=== PATIENT | male | born 1945 | race Caucasian/White ===

== ENCOUNTER 2020-04-29 06:46 | Inpatient (IN) ==
--- NOTE | 2020-04-03 14:15 | PAT Medication Instructions ---
Medication Instructions Date of Service April 03, 2020 Home Medications Medication Instructions Recorded 3-in-1 Commode #1 ea 02/24/20 Wheeled Walker #1 ea 02/24/20 acetaminophen 650 mg tablet,extended release 1,300 mg PO Q8H PRN cholecalciferol (vitamin D3) 50 mcg (2,000 unit) tablet 50 mcg PO DAILY duloxetine 60 mg capsule,delayed release 60 mg PO QAM DO NOT take the morning of surgery cholecalciferol (vitamin D3) 50 mcg (2,000 unit) tablet 50 mcg PO DAILY Take morning of surgery With a small sip of water, OTHERWISE NOTHING TO EAT OR DRINK AFTER MIDNIGHT: acetaminophen 650 mg tablet,extended release 1,300 mg PO Q8H PRN (if needed, may be taken up to four hours before surgery) duloxetine 60 mg capsule,delayed release 60 mg PO QAM Other Notes If you have any questions please call us at [phone] or [phone] or [phone] or [phone]
--- NOTE | 2020-04-06 11:46 | Anesthesiology Consultation ---
Date of Service April 06, 2020 Assessment & Plan (1) Encounter for pre-operative examination: COVID Status: As of 04/06 PAT assessment, patient denies travel to endemic area, known exposure/sick contacts, or symptoms of COVID19. Preoperative COVID19 testing to be completed prior to surgery. Chart Review Chart Review: Acceptable Risk for Surgery and Patient seen in Pre Admission Testing Teaching & Discussion Instructed NPO after midnight before surgery, except medications with 15 cc of water. Medication instructions provided according to the [facility] guidelines. History Surgery Operation Date: 04/29/20 11:15 Proposed Procedures p Left Total Hip Arthroplasty - Jamari Suazo MD Height/Weight Height: 6 ft Weight: 95.2 kg Allergies Allergy/AdvReac Type Severity Reaction Status Date / Time No Known Allergies Allergy Verified 03/30/20 12:28 Medications Home Medications Medication Instructions Recorded Confirmed Last Taken 3-in-1 Commode #1 ea 02/24/20 02/24/20 Unknown Wheeled Walker #1 ea 02/24/20 02/24/20 Unknown acetaminophen 650 mg 1,300 mg PO Q8H PRN 02/24/20 03/30/20 Unknown tablet,extended release cholecalciferol (vitamin D3) 50 50 mcg PO DAILY 02/24/20 03/30/20 Unknown mcg (2,000 unit) tablet duloxetine 60 mg capsule,delayed 60 mg PO QAM 02/24/20 03/30/20 Unknown release Past Medical History Medical History Bilateral hip joint arthritis Hearing deficit Rt GUADARRAMA History of hypertension History of syncope x 1 episode approx 2 years ago r/t hypotension - bp meds discontinued after episode. Osteoarthritis Exercise / Class Metabolic Activity II 4-5 Yardwork/Stairs/Walk up hill (denies SOB or CP with 1 FOS) Past Family History Family History Brother Diabetes Other No family history of adverse response to anesthesia Past Surgical History Surgical History History of ankle surgery Left History of colonoscopy History of plastic surgery Rt ear History of tonsillectomy and adenoidectomy Status post excision of lipoma Status post surgical removal of neoplasm of skin Rt ear Past Anesthesia History No Hx of Anesthesia Complications and No Family Hx of Anesthesia Complications History of PONV No Hx of Motion Sickness and History of PONV (just with ether as a child) Social History Smoking Status: Former smoker Do You Dip or Chew Tobacco: No (quit 1999) Smoking End Date: 1984 Hx Alcohol Use: Yes Alcohol type: hard liquor alcohol intake frequency: 0-2 drinks per day (1/day) Hx Substance Use: No substance use type: does not use Review of Systems Pt denies any recent chest pain, shortness of breath, palpitations, cough, fever or URI. Physical Exam Vital Signs BP: 171/105, rpt 5 mins later 160/98. He is anxious today. Pt reports takes BP daily at home and usually 130s/80s. As noted in hx, pt previously on antihypertensives but were d/c'd due to syncope/hypotension. PCP monitoring. P: 75bpm SPO2: 97% RA T: 98.5 F R: 16 ENMT Mouth: + dentures (upper) and + poor dentition (missing several on bottom, 9 remain); no chipped teeth and no loose teeth Thyromental Distance: > or= 3.5 Finger Breadths (4) Mallampati Class: II Neck normal visual inspection and + limited neck extension Respiratory normal respiratory effort Auscultation: lungs clear to auscultation bilaterally Cardiovascular Rate/Rhythm: regular rate and regular rhythm Heart Sounds: no murmur Extremities: no edema Testing Laboratory Results 04/06/20 12:01 04/06/20 12:01 PT 10.5 Seconds (9.0-12.0) 04/06/20 12:01 INR 1.0 (0.9-1.1) 04/06/20 12:01 APTT 29.3 Seconds (21.0-31.0) 04/06/20 12:01 Blood Type O Positive 04/06/20 12:01 Antibody Screen NEGATIVE 04/06/20 12:01 Electrocardiogram Date: 04/06/20 Findings: + NSR @ (75bpm) Chest X-Ray Date: 04/06/20 Findings: + NAD Echocardiogram Date: 06/15/18 EF: 60% Other Findings: + LVH (mild concentric) Valvular Disease: + no significant valvular disease Normal RV size and function. Normal RV/PA pressures.
--- NOTE | 2020-04-06 12:37 | XRay Report ---
XR chest Pre-admission PA/Lat HISTORY: 74 years-old Male pat preoperative exam. No acute chest complaints COMPARISON: None TECHNIQUE: PA and lateral views of the chest FINDINGS: Cardiac mediastinal and hilar silhouettes are within normal limits. No pneumothorax, pleural effusion , airspace consolidation or overt pulmonary edema. Bones of the chest appear grossly intact. IMPRESSION: No acute process. ACT 112: Negative or not required by law. The above report was generated using voice recognition software. It may contain grammatical, syntax o r spelling errors. Electronically signed by: Jacky Curtis M.D. 04/06/2020 12:35 PM
--- NOTE | 2020-04-06 12:38 | Electrocardiogram Report ---
Test Reason : Blood Pressure : / mmHG Vent. Rate : 075 BPM Atrial Rate : 075 BPM P-R Int : 168 ms QRS Dur : 094 ms QT Int : 422 ms P-R-T Axes : 020 044 047 degrees QTc Int : 471 ms Normal sinus rhythm Normal ECG No previous ECGs available Confirmed by Magan Cm ([id number]) on 04/06/2020 12:38:04 PM Referred By: Jamari Suazo Confirmed By:Franklin Cm
[2020-04-06 13:23] LABS: Basophils # (auto) 0.03 K/uL (0-0.2); Basophils % (auto) 0.5 %; Eosinophils # (auto) 0.15 K/uL (0-0.5); Eosinophils % (auto) 2.3 %; Hematocrit (blood only) 40.9 % (42-52); Hemoglobin 13.4 g/dL (14.0-18.0); Lymphocytes % (auto) 28.9 %; Mean Corpuscular Hemoglobin 28.5 pg (25-34); Mean Corpuscular Hgb Conc 32.8 g/dL (32-36); Mean Platelet Volume 9.4 fL (7.4-10.4); Monocytes # (auto) 0.53 K/uL (0.11-0.59); Monocytes % (auto) 8.1 %; Neutrophils # (auto) 3.96 K/uL (1.4-6.5); Neutrophils % (auto) 60.2 %; Platelet Count 249 K/uL (130-400); RDW Coefficient of Variation 14.8 % (11.5-14.5); RDW Standard Deviation 47.3 fL (36.4-46.3); White Blood Count 6.57 K/uL (4.8-10.8)
[2020-04-06 13:31] LABS: BUN Creatinine Ratio 18.2 (10-20); Calcium 9.2 mg/dl (8.5-10.1); Creatinine Clr Calc Pharmacy 81.4 ml/min; Est GFR (African American) 98.5; Potassium 4.2 mmol/L (3.5-5.1)
[2020-04-06 13:36] LABS: Partial Thromboplastin Ratio 1.1; Partial Thromboplastin Time 29.3 Seconds (21.0-31.0); Prothrombin Time 10.5 Seconds (9.0-12.0)
--- NOTE | 2020-04-25 22:45 | History and Physical Report ---
DATE OF ADMISSION: 04/24/2020 CHIEF COMPLAINT: Bilateral hip pain and discomfort, left side greater than the right. HISTORY OF PRESENT ILLNESS: The patient is a 74-year-old semi-retired gentleman. He has got about 2-1/2 year history of bilateral hip pain and discomfort, left side greater than right. No known injury. He has become more debilitating over time. He has tried multiple medicines which have not helped. He took Aleve which increased his blood pressure. He takes Tylenol which does not help much. He did try some CBD medicine which has helped some. He is an avid fisherman. He cannot fish as a result of his pain. Usually, fishes 2 hours at a time, but cannot do it for more than a half hour now. His walking tolerance is a couple blocks. He has increased pain with weightbearing. He has difficulty putting his shoes and socks on. He would like to proceed with hip surgery. PAST MEDICAL HISTORY: 1. Hypertension. 2. Elevated cholesterol. CURRENT MEDICINES: Include: 1. Tylenol. 2. Vitamin D3. 3. Duloxetine 60 mg daily. 4. CBD 15 mg a day. SOCIAL HISTORY: A 74-year-old male. He is . His is an RN. He does not smoke. FAMILY HISTORY: Significant for diabetes. REVIEW OF HISTORY: Negative for diabetes, neurologic problem, vascular problems or bleeding disorders. No chest pain or shortness of breath. No history of DVT or PE. No known bleeding problems. PHYSICAL EXAMINATION: GENERAL: Reveals a healthy, pleasant, middle-aged male. Looks to be in excellent health. HEENT: Benign. NECK: Supple, no lymphadenopathy. LUNGS: Clear to auscultation. HEART: Has a regular rate and rhythm. ABDOMEN: Soft, nontender, nondistended. EXTREMITIES: Grossly neurovascularly intact except as follows: Examination of his lower extremities reveals the patient ambulates with a significantly antalgic gait. Examination of left hip reveals his leg lengths to be equal. He does have stiffness and reproduction of his pain with any type of motion, particularly internal rotation. I can internally rotate his left hip to neutral. Negative straight leg raise. No knee effusion. He is neurologically intact. Examination of the right hip reveals leg lengths to be equal. Mild pain with hip motion. Very stiff as well with limited internal rotation. X-RAYS: X-rays of both hips reveals moderate to advanced hip arthritis, left side greater than the right. He has got near complete loss of joint space. He has got cystic changes of the femoral head and acetabulum. ASSESSMENT: A 74-year-old very active, semi-retired gentleman and avid fisherman with bilateral hip pain and degenerative joint disease, left side worse than right. He has failed conservative treatment and is affecting his quality of life and he would like to have his left hip fixed. PLAN: We will take him to the operating room and do a left total hip replacement. The risks and benefits of this procedure were explained to the patient including but not limited to DVT, PE, , infection, neurological injury, vascular injury, bleeding problem, pain, limited range of motion, stiffness, failure to relieve symptoms, incomplete relief of symptoms, need for further surgery in future, fracture, leg length inequality, nerve palsy, etc. The patient understands and desires to proceed. Informed consent was obtained. As far as discharge plans, he is planning to be discharged home with some home health and his 's assistance who is an RN. JESS
[~2020-04-29 06:46] MED LIST: ACETAMINOPHEN 500 MG TAB PO SCH; BUPIVACAINE 0.5 % 5 MG/1 ML PF 10ML VIAL ONE; CEFAZOLIN 2000MG 2,000 MG/15 ML SYR IV SCH; FAMOTIDINE 20 MG TAB PO SCH; GABAPENTIN 300 MG CAP PO SCH; LR 500ML BOLUS, THEN 15ML/HR IV SCH; LR 60ML/HR IV SCH; METOCLOPRAMIDE HCL 10 MG TABLET PO SCH; TRANEXAMIC ACID 1,000 MG **IV Pre-op IV SCH
--- NOTE | 2020-04-29 06:53 | History & Physical Bridge Note ---
Date of Service April 29, 2020 History & Physical Bridge Note I have examined the patient, reviewed the History & Physical and in the interval since the performance of the History & Physical I have noted the following changes of clinical significance: no changes noted
[2020-04-29] MEDS ORDERED: MIDAZOLAM HCL 1 MG/ML 2ML VIAL ONE (07:45)
[2020-04-29] MEDS ORDERED: fentaNYL citrate 100 MCG/2 ML VIAL ONE (07:45)
[2020-04-29] MEDS ORDERED: PROPOFOL IV EMULSION 10 MG/ML 20 ML VIAL IV ONE ×2 (08:46→11:11)
[2020-04-29] MEDS ORDERED: ONDANSETRON INJ 2 MG/ML 2 ML VIAL ONE (08:46)
[2020-04-29] MEDS ORDERED: DEXAMETHASONE SOD INJ 4 MG/ML VIAL ONE (08:46)
[2020-04-29] MEDS ORDERED: MoRPHine SULFATE PF 1 MG/ML 10 ML AMP/VIAL ONE (09:24)
[2020-04-29] MEDS ORDERED: LACTATED RINGER'S 500 ML IV PRN (09:42)
[2020-04-29] MEDS ORDERED: HYDROmorphone INJ 0.5 MG/0.5 ML SYR IV PRN ×2 (09:42→13:22)
[2020-04-29] MEDS ORDERED: EPINEPHrine INJ 1 MG/ML AMP ONE (09:42)
[2020-04-29] MEDS ORDERED: ONDANSETRON INJ 2 MG/ML 2 ML VIAL IV PRN ×2 (09:42→13:22)
[2020-04-29] MEDS ORDERED: MoRPHine SULFATE PF 1 MG/ML 10 ML AMP/VIAL INT SPINAL ONE (09:42)
[2020-04-29] MEDS ORDERED: NALOXONE HCL 0.08 MG in SYRINGE 1.8 ML IV PRN (09:42)
[2020-04-29] MEDS ORDERED: ePHEDrine sulfate 50 MG/ML AMP IV PRN ×2 (09:42→09:43)
[2020-04-29] MEDS ORDERED: BACITRACIN INJ 50,000 UNIT VIAL ONE (09:42)
[2020-04-29] MEDS ORDERED: DiphenhydrAMINE HCL 50 MG/ML VIAL IV PRN (09:42)
[2020-04-29] MEDS ORDERED: NALOXONE HCL 1 MG in SODIUM CHLORIDE 0.9% 1000ML 1,000 ML IV PRN (09:42)
[2020-04-29] MEDS ORDERED: BUPIVACAINE 0.5 % 5 MG/1 ML MPF 30ML VIAL ONE (09:42)
[2020-04-29] MEDS ORDERED: NALOXONE HCL 0.4 MG/1 ML VIAL/CARP IV PRN ×2 (09:42→13:22)
[2020-04-29] MEDS ORDERED: ATROPINE SULFATE 0.1 MG/ML 10ML SYR IV PRN (09:43)
[2020-04-29] MEDS ORDERED: SODIUM CHLORIDE 0.9% 1000ML 1,000 ML IV SCH (09:45)
[2020-04-29] MEDS ORDERED: NO NARCOTICS OR SEDATIVES SCH (09:45)
[2020-04-29] MEDS ORDERED: ePHEDrine sulfate 50 MG/ML SYR ONE ×2 (10:17→10:44)
[2020-04-29] MEDS ORDERED: GLYCOPYRROLATE 0.2 MG/ML VIAL ONE (10:43)
[2020-04-29] MEDS ORDERED: PHENYLEPHRINE HCL 10 MG/ML VIAL ONE (10:44)
--- NOTE | 2020-04-29 11:30 | Post Operative Brief Note ---
PG Immediate Post Op with CF Date of Surgery April 29, 2020 Pre & Post Diagnosis Operation Date: 04/29/20 09:05 Pre-Op Diagnosis: Left Hip Degenerative Joint Disease Post-Op Diagnosis: Left Hip Degenerative Joint Disease I identified the patient and participated in the time-out.: Yes Procedure Operation Date: 04/29/20 09:05 Actual Procedures p Left Total Hip Arthroplasty, uncemented(Left) - Jamari Suazo MD Surgeon Jamari Suazo MD Molder Setter Carmen, PAC Estimated Blood Loss 200 Findings Consistent with Post-Op Diagnosis Fluids 400 cc Specimens Specimen Description: Permanent specimen A: left femoral head Anesthesia Type Spinal MAC Complications none Disposition Accompanied Patient To Recovery: Yes Disposition: Recovery Room
--- NOTE | 2020-04-29 12:10 | XRay Report ---
XR hip 1V LT w pelvis CLINICAL HISTORY: IN PACU - A/P PELVIS and LATERAL HIP COMPARISON: None. DISCUSSION: Anatomic alignment post total left hip arthroplasty. Could contact between prosthetic and underlying bone. No evidence for acetabular protrusion. Expected postoperative soft tissue change IMPRESSION: Anatomic alignment post total left hip arthroplasty ACT 112: Negative or not required by law. The above report was generated using voice recognition software. It may contain grammatical, syntax or spelling errors. Electronically signed by: Mickey Escudero M.D. 04/29/2020 12:09 PM
--- NOTE | 2020-04-29 12:37 | Anesthesiology Progress Note ---
Date of Service April 29, 2020 Anesthesia Post Procedure Vital Signs Vital Signs: Temp Pulse Pulse Resp BP Pulse Ox 04/29/20 12:20 36.4 C L 88 20 141/87 H 98 04/29/20 12:10 77 13 142/83 H 93 04/29/20 12:00 81 14 138/85 95 04/29/20 11:50 36.5 C 88 12 140/79 96 04/29/20 11:40 93 H 14 136/80 100 04/29/20 11:33 36.4 C L 98 H 16 129/78 100 04/29/20 08:17 73 18 191/94 H 99 04/29/20 08:12 72 18 180/101 H 98 04/29/20 07:26 36.8 C 77 18 180/105 H 97 Transfer of Care Handoff Completed per policy Notes Mental Status: alert / awake / arousable and participated in evaluation Nausea / Vomiting: adequately controlled Pain: adequately controlled Airway Patency, RR, SpO2: stable & adequate BP & HR: stable & adequate Hydration State: stable & adequate Neuraxial Anesthesia: was administered and sensory block is resolving Anesthetic Complications: no major complications apparent and Pt Satisfied with anesthetic care
[2020-04-29] MEDS ORDERED: bisacodyL 10 MG SUPP PR PRN (13:22)
[2020-04-29] MEDS ORDERED: MAGNESIUM HYDROXIDE SUSP 30 ML UDC PO PRN (13:22)
[2020-04-29] MEDS ORDERED: TAMSULOSIN HCL 0.4 MG CAP PO PRN (13:22)
[2020-04-29] MEDS ORDERED: METOCLOPRAMIDE HCL INJ 5 MG/ML 2 ML VIAL IV PRN (13:22)
[2020-04-29] MEDS ORDERED: ALUMINUM/MAGNESIUM SUSP 30 ML UDC PO PRN (13:22)
[2020-04-29] MEDS ORDERED: TRAMADOL HCL 50 MG TABLET PO PRN (13:22)
--- NOTE | 2020-04-29 13:54 | Urology Progress Note ---
Date of Service April 29, 2020 Subjective Patient post hip replacement surgery today. We were asked to place a Gallagher as the could not do it in the operating room. Coud Gallagher was placed without difficulty Results & Data Vital Signs (Past 12 Hours) Vital Signs Temp Pulse Pulse Pulse Resp BP Pulse Ox 04/29/20 13:39 71 16 153/83 H 94 04/29/20 13:22 36.6 C 70 16 153/94 H 94 04/29/20 12:30 68 16 129/79 97 04/29/20 12:20 36.4 C L 88 20 141/87 H 98 04/29/20 12:10 77 13 142/83 H 93 04/29/20 12:00 81 14 138/85 95 04/29/20 11:50 36.5 C 88 12 140/79 96 04/29/20 11:40 93 H 14 136/80 100 04/29/20 11:33 36.4 C L 98 H 16 129/78 100 04/29/20 08:17 73 18 191/94 H 99 04/29/20 08:12 72 18 180/101 H 98 04/29/20 07:26 36.8 C 77 18 180/105 H 97 PG Care Time/CCT Total # of Minutes Spent Total Time Spent with Patient: Total time spent is greater than 50% in coordination of care (as documented) at patient's floor/unit and/or counseling patient: Coding Level of Care Code None
[2020-04-29] MEDS: ACETAMINOPHEN 500 MG TAB PO SCH ×2 (14:30→21:37)
[2020-04-29] MEDS: KETOROLAC TROMETHAMINE 15 MG/ML VIAL IV SCH ×2 (14:30→21:34)
[2020-04-29] MEDS: SODIUM CHLORIDE 0.9% 1000ML 1,000 ML IV SCH ×2 (14:30→21:44)
[2020-04-29] MEDS: FERROUS GLUCONATE 324 MG TAB PO SCH (17:20)
[2020-04-29] MEDS: ASCORBIC ACID 500 MG TAB PO SCH (17:21)
[2020-04-29] MEDS: CEFAZOLIN 2000MG 2,000 MG/15 ML SYR IV SCH (17:25)
[2020-04-29] MEDS ORDERED: TRANEXAMIC ACID / 0.7% NACL 1,000 MG/100 ML BAG IV SCH (17:30)
--- NOTE | 2020-04-29 19:34 | Operative Report ---
Post Operative Report Pre & Post Diagnosis Operation Date: 04/29/20 09:05 Pre-Op Diagnosis: Left Hip Degenerative Joint Disease Post-Op Diagnosis: Left Hip Degenerative Joint Disease I identified the patient and participated in the time-out.: Yes Procedure Operation Date: 04/29/20 09:05 Actual Procedures p Left Total Hip Arthroplasty, uncemented(Left) - Jamari Suazo MD Surgeon Jamari Suazo MD Dishwasher Carmen, PAC Estimated Blood Loss 200 Findings Consistent with Post-Op Diagnosis Operative findings operative findings revealed advanced left hip DJD. He had grade 4 [id number] disease of the femoral head and acetabulum. He had a fairly large medial acetabular osteophyte. Moderate sized joint effusion. Fluids 400 cc. Specimens Left femoral head sent for pathology. Drains None. Anesthesia Type Spinal MAC Complications none Disposition Accompanied Patient To Recovery: Yes Disposition: Recovery Room Indications Patient is a 74-year-old fairly active gentleman is had a several year history of increasing left hip pain discomfort is gotten suddenly worse over the past year. He has been unable to enjoy fishing like he normally does because he just cannot stand or walk for any long distance. X-rays show progressive hip arthritis. He failed conservative treatment. Elective proceed with total hip arthroplasty. Description of Procedure Operative implants consist of: 1. Biomet G7 size 54 mm acetabular shell. 2. 6.5 cancellus acetabular screws 135 mm in length and 1 of the 25 mm in length. 3 [place] hole eliminator. 4. Highly cross-linked polyethylene liner with a 54 mm outer diameter, 36 mm inner diameter with a hartman placed inferior and posterior. 5. [place] Corail size 13 KLA femoral stem. 6. +5/36 mm ceramic articular ball. Patient taken to the operating room identified and placed on the operating table supine position protectors were properly padded. IV antibiotics arrived by anesthesia team. A spinal anesthetic been implemented holding area. Gallagher catheter was attempted to be placed in a sterile fashion. We unable to place this. We tried a size 12 catheter and then a coud catheter were unsuccessful. We elected to abort this admission and get a urology consult in the recovery penny . The patient was then placed in the right lateral decubitus position. Axillary roll was placed. Stulberg hip positioner was used for positioning. The left hip and leg were then prepped and draped in usual sterile fashion. A posterior lateral posterior left hip was then performed through a curvilinear incision centered over the greater trochanter but sharp dissection got through subcutaneous tissue down to level the IT band gluteal fascia the IT band gluteal fascia incised longitudinally in line with skin incision. The underlying greater bursa was excised. The piriformis and external rotators were tagged and taken off the posterior aspect hip joint capsule. The posterior capsule was released. Great care was taken throughout the procedure protect the sciatic nerve at all times. Hip was internally rotated and dislocated. Femoral neck osteotomy cut was made with Final Cut 12 mm above the lesser trochanter. Femoral head was removed. It was sent for pathology. The femur was retracted anteriorly. The acetabular labrum was excised. The pulmonary fat was excised. Sequential reaming the acetabular was then performed begin with size 45 and progressing up to 53. 54 mm Biomet G7 acetabular shell was then placed in about 40 degrees lateral opening and 20 degrees of anteversion. It was fixed with two 6.5 cancellus acetabular screws. A trial liner was placed. Attention drawn the femur. Nipride the proximal femur was entered with a cookie-cutter followed by canal finder. I then broached beginning with a size 8 and progressing up to 13. Got excellent fit at 13. Calcar reamer was used smooth and off the calcar. I then trialed the hip and the +5 articular ball seem to re-create leg lengths equal and soft tissue tension appropriate. It was fully stable in full e xtension and external rotation and flexion to 9 degrees into rotation over [address] I elect to place these implants. I did place a hartman inferior and posterior to maximize the stability in flexion. All trial implants were removed. An apex hole limited was placed but highly cross-linked polyethylene liner was placed. A size 13 KLA femoral stem was impacted in position. A +5/36 mm ceramic articular ball was placed. Hip was located once again found to be stable. Attention drawn to closing. New breath wounds irrigated copious pulsatile lavage solution. I did inject locally with 60 cc of half percent Marcaine with epinephrine. The posterior capsule and external rotators were then repaired through drill holes in the posterior trochanter with #2 Tycron suture. The IT band gluteal fascia then closed with #1 PDS suture running fashion the subcutaneous tissues then closed 2 layers the deep layer #1 Vicryl suture and then the subcutaneous tissues with 2-0 Dexon suture in a buried interrupted fashion the skin was closed skin dayna. Legs then cleaned dried and sterile dressed composed Xeroform 4 x 4's sterile cast padding Rigo bandage were applied. Patient then transferred to the recovery room in stable condition. Patient tolerated procedure well no complications. I attest to the content of the Intraoperative Record and any orders documented therein. Any exceptions are noted below.
[2020-04-29] MEDS ORDERED: SENNA 8.6 MG TAB PO SCH (21:00)
[2020-04-29] MEDS: DOCUSATE SODIUM 100 MG CAP PO SCH (21:35)
[2020-04-29] MEDS: ASPIRIN 81 MG ECTAB PO SCH (21:36)
[2020-04-30] MEDS: KETOROLAC TROMETHAMINE 15 MG/ML VIAL IV SCH ×3 (02:04→13:26)
[2020-04-30] MEDS: CEFAZOLIN 2000MG 2,000 MG/15 ML SYR IV SCH (02:06)
[2020-04-30] MEDS ORDERED: DC INTRASPINAL MORPHINE ONE (03:42)
[2020-04-30] MEDS: ACETAMINOPHEN 500 MG TAB PO SCH ×2 (05:51→13:24)
[2020-04-30] MEDS: SODIUM CHLORIDE 0.9% 1000ML 1,000 ML IV SCH (05:54)
[2020-04-30 06:35] LABS: Basophils # (auto) 0.01 K/uL (0-0.2); Basophils % (auto) 0.1 %; Hematocrit (blood only) 35.6 % (42-52); Hemoglobin 11.1 g/dL (14.0-18.0); Immature Granulocytes # (auto) 0.04 K/uL (0.00-0.02); Immature Granulocytes % (auto) 0.3 %; Lymphocytes # (auto) 1.25 K/uL (1.2-3.4); Lymphocytes % (auto) 10.5 %; Mean Corpuscular Hgb Conc 31.2 g/dL (32-36); Mean Corpuscular Volume 89.7 fL (80-100); Mean Platelet Volume 9.3 fL (7.4-10.4); Monocytes % (auto) 5.9 %; Neutrophils # (auto) 9.92 K/uL (1.4-6.5); Neutrophils % (auto) 83.2 %; Platelet Count 197 K/uL (130-400); RDW Coefficient of Variation 15.4 % (11.5-14.5); RDW Standard Deviation 50.9 fL (36.4-46.3); Red Blood Count 3.97 M/uL (4.7-6.1); White Blood Count 11.92 K/uL (4.8-10.8)
[2020-04-30] MEDS ORDERED: SODIUM CHLORIDE 0.9% 1000ML 500 ML IV ONE (06:37)
[2020-04-30 07:08] LABS: Calcium 7.9 mg/dl (8.5-10.1); Creatinine Clr Calc Pharmacy 39.9 ml/min; Est GFR (African American) 37.1; Potassium 4.3 mmol/L (3.5-5.1)
--- NOTE | 2020-04-30 07:35 | Anesthesiology Progress Note ---
Date of Service April 30, 2020 Anesthesia Post Procedure Vital Signs Vital Signs: Temp Pulse Pulse Pulse Resp BP BP 04/30/20 07:28 36.7 C 75 18 126/70 04/30/20 02:57 16 04/30/20 02:55 36.6 C 78 16 95/57 L 04/30/20 02:10 16 04/30/20 01:00 16 04/30/20 00:00 16 04/29/20 23:32 36.6 C 83 16 104/65 04/29/20 22:05 18 04/29/20 21:14 18 04/29/20 20:07 36.5 C 75 18 142/81 H 04/29/20 19:20 16 04/29/20 19:17 15 04/29/20 18:03 16 04/29/20 17:02 18 04/29/20 15:57 36.6 C 75 16 115/70 04/29/20 15:11 36.5 C 71 16 135/79 04/29/20 14:00 65 16 142/83 H 04/29/20 13:39 71 16 153/83 H 04/29/20 13:22 36.6 C 70 16 153/94 H 04/29/20 12:30 68 16 129/79 04/29/20 12:20 36.4 C L 88 20 141/87 H 04/29/20 12:10 77 13 142/83 H 04/29/20 12:00 81 14 138/85 04/29/20 11:50 36.5 C 88 12 140/79 04/29/20 11:40 93 H 14 136/80 04/29/20 11:33 36.4 C L 98 H 16 129/78 04/29/20 08:17 73 18 191/94 H 04/29/20 08:12 72 18 180/101 H Pulse Ox 04/30/20 07:28 92 04/30/20 02:57 96 04/30/20 02:55 97 04/30/20 02:10 95 04/30/20 01:00 94 04/30/20 00:00 94 04/29/20 23:32 95 04/29/20 22:05 93 04/29/20 21:14 95 04/29/20 20:07 96 04/29/20 19:20 95 04/29/20 19:17 91 04/29/20 18:03 91 04/29/20 17:02 93 04/29/20 15:57 92 04/29/20 15:11 95 04/29/20 14:00 97 04/29/20 13:39 94 04/29/20 13:22 94 04/29/20 12:30 97 04/29/20 12:20 98 04/29/20 12:10 93 04/29/20 12:00 95 04/29/20 11:50 96 04/29/20 11:40 100 04/29/20 11:33 100 04/29/20 08:17 99 04/29/20 08:12 98 Pain Intensity Left Hip: Pain Intensity: 0 Transfer of Care Handoff Completed per policy Notes Mental Status: alert / awake / arousable Nausea / Vomiting: adequately controlled Pain: adequately controlled Airway Patency, RR, SpO2: stable & adequate BP & HR: stable & adequate Hydration State: stable & adequate Neuraxial Anesthesia: was administered and sensory block resolved Anesthetic Complications: no major complications apparent and Pt Satisfied with anesthetic care
--- NOTE | 2020-04-30 08:29 | Progress Notes ---
DATE: 04/30/2020 SUBJECTIVE: A 74-year-old gentleman postop day 1 from a left hip replacement. He is doing pretty well. Pain is controlled. Little hypotensive this morning but asymptomatic. No chest pain or shortness of breath. Not feeling dizzy or lightheaded. He is a bit concerned that this low blood pressure might hold his discharge up. OBJECTIVE: VITAL SIGNS: Temperature 36.6. Vital signs stable. Blood pressure 95/57. GENERAL: Reveals a pleasant, middle-aged male. He is sitting up in bed and looks comfortable. LUNGS: Clear to auscultation. HEART: Regular rate and rhythm. ABDOMEN: Soft, nontender, nondistended. EXTREMITIES: Grossly neurovascularly intact except as follows: Examination of the left lower extremity reveals the leg to be well aligned. Hip is located. Dressing is clean, dry, and intact. He is neurologically intact. LABORATORY DATA: Hemoglobin 11.1. Hematocrit 35.6. White cell count 11.92. Electrolytes are pending. ASSESSMENT: A 74-year-old gentleman postop day 1 from a left hip replacement, doing pretty well. He is a little hypotensive this morning but asymptomatic. He has been ordered some IV fluids. He still has a Gallagher in place. PLAN: 1. DVT prophylaxis including thigh-high TEDs, SCDs, and aspirin twice a day. 2. PT/OT. Weight bear as tolerated. Left total hip protocol. 3. Pain control, doing well with current pain regimen. 4. Hypotension. We will give him some fluid this morning and follow this throughout the day. 5. Disposition: He is hoping to be discharged home with some home health. We will see how therapy goes today. We will need to get his Gallagher out and make sure he is urinating okay.
[2020-04-30] MEDS: FERROUS GLUCONATE 324 MG TAB PO SCH (08:40)
[2020-04-30] MEDS: ASCORBIC ACID 500 MG TAB PO SCH (08:40)
[2020-04-30] MEDS: ASPIRIN 81 MG ECTAB PO SCH (08:41)
[2020-04-30] MEDS: DOCUSATE SODIUM 100 MG CAP PO SCH (08:41)
[2020-04-30] MEDS ORDERED: DULOXETINE HCL 60 MG CAP PO SCH (09:00)
[2020-04-30] MEDS ORDERED: MULTIVITAMIN TAB PO SCH (09:00)
[2020-04-30] MEDS ORDERED: CHOLECALCIFEROL 1,000 UNITS 25 MCG TAB PO SCH (09:00)
--- NOTE | 2020-04-30 11:20 | Urology Progress Note ---
Date of Service April 30, 2020 Assessment & Plan (1) BPH (benign prostatic hyperplasia): clark out this am call if further issues Subjective difficult clark yesterday - cath is out now has not voided yet denies voiding dysfunction at baseline Physical Exam Constitutional: well developed and well nourished Respiratory: no respiratory distress Cardiovascular: Extremities: no pedal edema Gastrointestinal (Abdomen): Inspection/Auscultation: abdomen normal to inspection Results & Data Vital Signs (Past 12 Hours) Vital Signs Temp Pulse Resp BP Pulse Ox 04/30/20 07:28 36.7 C 75 18 126/70 92 04/30/20 02:57 16 96 04/30/20 02:55 36.6 C 78 16 95/57 L 97 04/30/20 02:10 16 95 04/30/20 01:00 16 94 04/30/20 00:00 16 94 04/29/20 23:32 36.6 C 83 16 104/65 95 PG Care Time/CCT Total # of Minutes Spent Total Time Spent with Patient: Total time spent is greater than 50% in coordination of care (as documented) at patient's floor/unit and/or counseling patient: Coding Level of Care Code 16070 Subseq Hosp Care Lvl 2 Diagnoses BPH (benign prostatic hyperplasia) N40.0
--- NOTE | 2020-05-05 15:49 | Discharge Summary ---
Date of Service May 05, 2020 Admission HPI Per Admitting Provider Documented in the H&P Admission Exam (Per Admitting) Constitutional Documented in the H&P Discharge Data Consultations 04/29/20 13:22 Consult Urology Stat 04/30/20 08:00 Consult Case Management - Discharge Planning Routine Procedures Performed Operation Date: 04/29/20 09:05 Actual Procedures p Left Total Hip Arthroplasty, uncemented(Left) - Jamari Suazo MD Hospital Course (1) Status post total hip replacement, left: 74-year-old male admitted on 04/29/2020 and underwent total hip replacement. He tolerated the procedure well and there were no complications. He was transferred to the PACU postoperatively and later the orthopedic for further care. There was difficulty placing his Gallagher catheter in the operating room and urology was consulted. He was seen by Dr. Esparza in the PACU where the catheter was placed successfully. He was given Ancef for antibiotic prophylaxis. He was also given REBECA stockings, SCDs, and aspirin for DVT prophylaxis. His hemoglobin, hematocrit, and vital signs were monitored during his hospital stay and remained stable. He did not require blood transfusions. He did have some hypotension postoperatively but remained asymptomatic. There were no Complications during His Hospital Stay. Postoperative Day 1 he was tolerating a regular diet, pain was controlled with oral pain medicine, and he was participating in physical therapy. Postop day 1 he was discharged home set up with home health services. He was given printed discharge instructions as well as new prescriptions for extra strength Tylenol, aspirin, iron supplement, and tramadol. Continue physical therapy. He is weightbearing as tolerated. Total hip precautions. Continue REBECA stockings. Follow-up proximately 2 weeks postop or sooner if any problems or concerns. Coding Level of Care Code None Diagnoses Status post total hip replacement, left Z96.642
== END 2020-04-30 15:30 | disposition home health service (06) | DRG 470 ==
LOC: ASU 06:46 → 3E 11:34
DX: M16.12 Unilateral primary osteoarthritis, left hip; I95.9 Hypotension, unspecified; Z87.891 Personal history of nicotine dependence; N40.0 Benign prostatic hyperplasia without lower urinary tract symptoms

== ENCOUNTER 2020-09-11 10:41 | Observation (INO) ==
--- NOTE | 2020-08-20 09:28 | Anesthesiology Consultation ---
Date of Service August 20, 2020 Assessment & Plan (1) Encounter for pre-operative examination: Chart Review Chart Review: Acceptable Risk for Surgery (pending preop Covid testing ) and Patient NOT seen in Pre Admission Testing Per nursing assessment 08/12/20, pt resides in [facility]. Wears mask, uses good hand hygiene and socially distances. 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 No known Covid positive contacts or Covid related symptoms. Pt will follow up with surgeon for preop Covid testing. Left TKA 04/29/20= Done under SAB at L3 with 1 attempt. No anesthesia issues noted per anesthesia record. History Surgery Operation Date: 09/11/20 08:50 Proposed Procedures p Right Total Hip Arthroplasty - Jamari Suazo MD Height/Weight Height: 6 ft Weight: 90.718 kg Allergies Allergy/AdvReac Type Severity Reaction Status Date / Time tramadol AdvReac Severe AGGRESSIVE, Verified 08/12/20 14:41 CONFUSED, SWINGING AT PEOPLE Medications Home Medications Medication Instructions Recorded Confirmed Last Taken 3-in-1 Commode #1 ea 02/24/20 02/24/20 Unknown Wheeled Walker #1 ea 02/24/20 02/24/20 Unknown cholecalciferol (vitamin D3) 50 50 mcg PO QAM 02/24/20 08/19/20 04/28/20 07:30 mcg (2,000 unit) tablet Cbd Oit Otc 20 mg PO QAM 08/12/20 08/19/20 Unknown Past Medical History Medical History Bilateral hip joint arthritis Hearing deficit Rt GUADARRAMA History of hypertension History of syncope x 1 episode approx 2 years ago r/t hypotension - bp meds discontinued after episode. Osteoarthritis Past Family History Family History Brother Diabetes Other No family history of adverse response to anesthesia Past Surgical History Surgical History History of ankle surgery Left History of colonoscopy History of plastic surgery Rt ear History of tonsillectomy and adenoidectomy History of total hip arthroplasty LEFT 04/2020 Status post excision of lipoma Status post surgical removal of neoplasm of skin Rt ear Social History Smoking Status: Never smoker Do You Dip or Chew Tobacco: No (QUIT AGE 62) Smoking End Date: QUIT AGE 42 Hx Alcohol Use: Yes Alcohol type: hard liquor alcohol intake frequency: 0-2 drinks per day Hx Substance Use: No substance use type: other Substance Use Type Other:: CBD OIL PO 1 ML(20 MG)QAM Testing Laboratory Results Blood Type O Positive 08/19/20 12:40 Antibody Screen NEGATIVE 08/19/20 12:40 Laboratory Tests 08/19/20 08/19/20 08/19/20 12:40 12:40 12:40 WBC 5.87 Hgb 14.0 Hct 43.6 Plt Count 283 PT 10.4 INR 1.0 Sodium 141 Potassium 4.2 Chloride 109 H Carbon Dioxide 30 BUN 15 Creatinine 0.94 Glucose 96 Electrocardiogram Date: 04/06/20 Findings: + NSR @ (75) Normal EKG. Chest X-Ray Date: 04/06/20 Findings: + NAD Echocardiogram Date: 06/15/18 EF: 60% LV Function: normal Other Findings: + LVH (mild concentric) Valvular Disease: + no significant valvular disease Normal RV size and function. Normal RV/PA pressures. Stress Test Date: 08/04/14 Type: exercise (ECHO ) Resting EF: 60-65% Resting LV Function: normal Resting RWMA: + none Good exercise tolerance. Normal hemodynamic response to exercise. No EKG evidence of exercise induced ischemia. No ECHO evidence of exercise induced ischemia. Normal stress ECHO.
[~2020-09-11 10:41] MED LIST changes: -CEFAZOLIN 2000MG 2,000 MG/15 ML SYR IV SCH; +MIDAZOLAM HCL 1 MG/ML 2ML VIAL ONE; +TRANEXAMIC ACID 1,000 MG **IV Intra-op IV SCH; -TRANEXAMIC ACID 1,000 MG **IV Pre-op IV SCH; +ceFAZolin 2000MG 2,000 MG/15 ML SYR IV SCH; +fentaNYL citrate 100 MCG/2 ML VIAL ONE
[2020-09-11] MEDS ORDERED: MoRPHine SULFATE PF 1 MG/ML 10 ML AMP/VIAL ONE (13:00)
--- NOTE | 2020-09-11 13:34 | History & Physical Bridge Note ---
Date of Service September 11, 2020 History & Physical Bridge Note I have examined the patient, reviewed the History & Physical and in the interval since the performance of the History & Physical I have noted the following changes of clinical significance: no changes noted
[2020-09-11] MEDS ORDERED: BACITRACIN INJ 50,000 UNIT VIAL ONE (13:42)
[2020-09-11] MEDS ORDERED: PROPOFOL IV EMULSION 10 MG/ML 20 ML VIAL IV ONE (13:42)
[2020-09-11] MEDS ORDERED: LIDOCAINE HCL 2% 2 ML VIAL/AMP(20MG/ML) INFIL ONE (13:42)
[2020-09-11] MEDS ORDERED: BUPIVACAINE/EPINEPHRINE 0.5% MPF 1:200,000 30 ML VIAL ONE (13:42)
[2020-09-11] MEDS ORDERED: MIDAZOLAM HCL 1 MG/ML 2ML VIAL ONE (14:07)
[2020-09-11] MEDS ORDERED: ePHEDrine sulfate 50 MG/ML SYR ONE (14:31)
[2020-09-11] MEDS ORDERED: ONDANSETRON INJ 2 MG/ML 2 ML VIAL ONE (14:31)
[2020-09-11] MEDS ORDERED: NALOXONE HCL 0.4 MG/1 ML VIAL/CARP IV PRN ×2 (14:48→20:01)
[2020-09-11] MEDS ORDERED: ONDANSETRON INJ 2 MG/ML 2 ML VIAL IV PRN (14:48)
[2020-09-11] MEDS ORDERED: diphenhydrAMINE 50 MG/ML VIAL IV PRN (14:48)
[2020-09-11] MEDS ORDERED: NALOXONE HCL 0.08 MG in SYRINGE 1.8 ML IV PRN (14:48)
[2020-09-11] MEDS ORDERED: HYDROmorphone INJ 0.5 MG/0.5 ML SYR IV PRN (14:48)
[2020-09-11] MEDS ORDERED: ePHEDrine sulfate 50 MG/ML AMP IV PRN ×2 (14:48)
[2020-09-11] MEDS ORDERED: NALOXONE HCL 1 MG in SODIUM CHLORIDE 0.9% 1000ML 1,000 ML IV PRN (14:48)
[2020-09-11] MEDS ORDERED: MoRPHine SULFATE PF 1 MG/ML 10 ML AMP/VIAL INT SPINAL ONE (14:48)
[2020-09-11] MEDS ORDERED: ATROPINE SULFATE 0.1 MG/ML 10ML SYR IV PRN (14:48)
[2020-09-11] MEDS ORDERED: DC INTRASPINAL MORPHINE SCH (15:00)
--- NOTE | 2020-09-11 15:43 | Post Operative Brief Note ---
PG Immediate Post Op with CF Date of Surgery September 11, 2020 Pre & Post Diagnosis Operation Date: 09/11/20 12:30 Pre-Op Diagnosis: Right Hip Degenerative Joint Disease Post-Op Diagnosis: Right Hip Degenerative Joint Disease I identified the patient and participated in the time-out.: Yes Procedure Operation Date: 09/11/20 12:30 Actual Procedures p Right Total Hip Arthroplasty--Uncemented(Right) - Jamari Suazo MD Surgeon Jamari Suazo MD Dye Room Helper MILVIA Morales; Estimated Blood Loss 200 Findings Consistent with Post-Op Diagnosis Fluids 1500 cc Specimens Specimen Description: A. Right Femoral Head Anesthesia Type Spinal MAC Complications none Disposition Accompanied Patient To Recovery: Yes Disposition: Recovery Room
--- NOTE | 2020-09-11 16:24 | XRay Report ---
AP PELVIS, CROSSTABLE LATERAL RIGHT HIP History: Right total hip arthroplasty. Degenerative arthritis. Postop. FINDINGS: The patient is status post a right total hip arthroplasty. The hardware is intact. No fract ure or dislocation. Skin dayna are in place. Evidence for prior left total hip arthroplasty. IMPRESSION: Right total hip arthroplasty. No evidence for hardware complication ACT 112: Negative or not required by law. Electronically signed by: Jacek Lemus M.D. 09/11/2020 4:23 PM
[2020-09-11] MEDS ORDERED: LIDOCAINE 2% JELLY 5 ML TUBE ONE ×2 (16:31→16:40)
--- NOTE | 2020-09-11 16:31 | Anesthesiology Progress Note ---
Date of Service September 11, 2020 Anesthesia Post Procedure Vital Signs Vital Signs: Temp Pulse Pulse Resp BP BP Pulse Ox 09/11/20 16:25 68 8 L 135/69 96 09/11/20 16:15 72 16 139/69 95 09/11/20 16:05 71 16 163/85 H 97 09/11/20 15:55 68 18 143/80 H 97 09/11/20 15:45 36.5 C 82 16 123/81 99 09/11/20 12:10 66 18 181/111 H 98 09/11/20 11:18 36.6 C 80 18 174/106 H 90 Transfer of Care Handoff Completed per policy Notes Mental Status: alert / awake / arousable Patient Amnestic to Procedure: Yes Nausea / Vomiting: adequately controlled Pain: adequately controlled Airway Patency, RR, SpO2: stable & adequate BP & HR: stable & adequate Hydration State: stable & adequate Neuraxial Anesthesia: was administered and sensory block is resolving Anesthetic Complications: no major complications apparent
--- NOTE | 2020-09-11 17:44 | Operative Report ---
Post Operative Report Pre & Post Diagnosis Operation Date: 09/11/20 12:30 Pre-Op Diagnosis: Right Hip Degenerative Joint Disease Post-Op Diagnosis: Right Hip Degenerative Joint Disease Operation Date: 09/11/20 15:55 <No data on this case meets the specified criteria> I identified the patient and participated in the time-out.: Yes Procedure Operation Date: 09/11/20 12:30 Actual Procedures p Right Total Hip Arthroplasty--Uncemented(Right) - Jamari Suazo MD Operation Date: 09/11/20 15:55 <No data on this case meets the specified criteria> Surgeon Jamari Suazo MD Wave Guide Assembler MILVIA Morales; Estimated Blood Loss 200 Findings Consistent with Post-Op Diagnosis Much inOperative findings revealed advanced right hip DJD. He had grade 4 [id number] disease the femoral head and acetabulum. not much in way of osteophyte formation. He had a moderate-sized joint effusion. Fluids 1500 cc. Specimens Right femoral head sent for pathology. Drains None. Anesthesia Type Spinal MAC Complications none Disposition Accompanied Patient To Recovery: No Disposition: Recovery Room Indications Patient is a 75-year-old gentleman who has a several year history of increasing bilateral hip pain discomfort. Is been through extensive conservative treatment past which really have not helped much. He underwent a left total hip replacement about 4 and half months ago and is done well from this. He elected proceed with right total hip arthroplasty. Description of Procedure Operative implants consist of: 1. Biomet G7 size 54 mm acetabular shell. 2. 6.5 cancellous acetabular screws 1 of 35 mm in length and 1 of 25 mm length. 3. [place] hole gmat tutor. 4. Highly cross-linked polyethylene liner with a 54 mm outer diameter 36 mm inner diameter with a hartman placed inferior and posterior. 5. Ximena Corail size 13 KLA femoral stem. 6. +5/36 mm ceramic articular ball. The patient was taken to the operating identified and placed on the operating table supine position but all contractors were properly padded. IV antibiotics tried by anesthesia team. A spinal anesthetic and been implemented holding area. We attempted to place a Gallagher catheter but were unsuccessful. Therefore we elected to hold off on this and have urology do such in the recovery room. The patient was then placed in the left lateral decubitus position. An axillary roll was placed. Stulberg hip positioner was used for positioning. The right lower extremity and hip area were then prepped and draped in usual sterile fashion. A posterior lateral approach of the right hip was then performed through a curvilinear incision centered over the greater trochanter. Sharp dissection got through subcutaneous tissue down to level the IT band gluteal fascia but the IT band gluteal fascia incised longitudinally in line with skin incision. The underlying greater bursa was excised. The piriformis and external rotators were taken off the posterior aspect of the hip joint as a single layer. Great care was taken throughout the procedure protect the sciatic nerve at all times. The hip was internally rotated and dislocated. A femoral neck osteotomy cut was made with Final Cut 12 mm above the lesser trochanter. Femoral head was removed and sent for pathology. The femur was retracted anteriorly. Attention drawn the acetabulum. The acetabular labrum was excised. The pulmonary fat was excised. Sequential reaming the acetabular was then performed performed begin with a size 45 and progressing up to 53. I did reamed a little bit with a 54 reamer. A 54 mm Biomet G7 acetabular shell was then placed in about 40 degrees lateral opening and 20 degrees of anteversion. It was fixed with two 6.5 cancellus acetabular screws. Trial liner was placed. Attention drawn the femur. The proximal femur was entered with a cookie-cutter followed by canal finder. I then broached begin the size 8 and progressing up to 13. We got excellent fit at 13. I then trialed the hip. The the soft tissues tension seemed appropriate. The hip was fully stable in full extension and external rotation and flexion to 90 degrees and internal rotation of 45 to 50 degrees. I did elect to place a hartman inferior and posterior to maximize his stability in flexion. We elect to place these implants. All trial implants were removed. An apex hole gmat tutor was placed. Highly cross-linked polyethylene liner with a hartman placed inferior and posterior was impacted in position. A [place] size 13 KLA femoral stem was impacted in position. A +5/36 mm ceramic articular ball was placed and the hip was once again located. Attention drawn toward closing. Wounds irrigated cups amounts of pulsatile lavage solution. I injected locally with 60 cc of half percent Marcaine with epinephrine. The posterior capsule and external rotators were then repaired through drill in the posterior trochanter with #2 Tycron suture as a single layer. The IT band gluteal fascia then closed in 1 PDS suture running fashion the subcutaneous tissue then closed 2 layers the deep layer #1 Vicryl suture and subcutaneous tissues with 2-0 Dexon suture in a buried interrupted fashion. Skin was closed skin dayna. The leg was then davian aned and dried a sterile dressing composed Xeroform, 4 x 4's, ABD pad, foam tape were applied. Patient transported to the recovery room in stable condition. The patient tolerated procedure well and there were no complications. A consult was placed for urology to place a Gallagher catheter in the recovery room. Stan Morales, my physician purchasing administrative assistant, was present for the entire procedure. His assistance was essential and required for appropriate patient positioning, prepping and draping, surgical exposure, performing the technical details of the operation, placement the implants, closure of the wound, and placement of the sterile bandage. I attest to the content of the Intraoperative Record and any orders documented therein. Any exceptions are noted below.
--- NOTE | 2020-09-11 17:51 | Urology Consultation ---
Date of Consultation September 11, 2020 Assessment & Plan (1) BPH (benign prostatic hyperplasia): (2) Urethral stricture: Cystoscopy Procedure performed by: Jerry Carcamo II Consent: Verbal, urgent due to inability to void with hematuria Indications: Inability to pass catheter, gross hematuria Discussed with patient risks, benefits, and alternatives. These include, but are not limited to, risks of bleeding, infection risks and possible injury to urethra or bladder. Verbal consent was obtained prior to the procedure Time Out: The identity of patient was confirmed via name and date of , by patient and the correct site and the procedure to be performed were confirmed Anesthesia: 1% Viscous Lidocaine gel as well as spinal block anesthetic Patient was prepped and draped in the usual sterile fashion using: betadine The periurethral area was exposed and lubricated and a flexible cystocope placed. The cystoscope was placed placed into the urethra and advanced until a severe stricture was noted. Multiple false passages were appreciated. Multiple attempts to pass a wire failed to succeed. Visualization was limited due to minor bleeding from false passage. Complications: Unable to advance scope due to severe stricture and false passage otherwise no complications Patient Status: Tolerated procedure well with minimal discomfort. Vital signs were stable. Due to inability to pass wire or advance scope during the procedure discussed with patient options including proceeding to OR for a more formal cystoscopy with likely dilation. (3) Hematuria, gross: Risks and benefits discussed at length for procedure. These include bleeding, infection, injury to surrounding tissues or organs, and risks associated with anesthesia. Patient states understanding and agrees to proceed. Will sign consent and sche dule. Failed attempt to pass wire through stricture with bedside scope. Discussed options. Patient still under effects of spinal anesthesia. Discussed option for cystoscopy with dilation in OR utilizing the spinal anesthesia. Patient agreeable. Due to urgent nature and severity of obstruction, patient was consented for urgent procedure. Patient was agreeable. Due to recent orthopedic surgery we will plan to maintain patient in supine position for flexible cystoscopy in the OR we will continue to utilize patient spinal anesthetic block without further anesthesia or sedation Consent for or procedure was received and documented and placed on chart History of Present Illness Attending Physician: Jamari Suazo MD History of Present Illness Consult for urinary issues with Catheter placement and inability to pass catheter during orthopedic procedure. Had similar issues with other hip operation. Patient has mild to moderate discomfort in pelvis and groin going to back and side in waves. Has spinal anesthesia and minimal sensation . Multiple attempts to pass catheter were unsuccessful. Moderate blood at meatus was noted at time of assessment. A bedside cystoscopy was also attempted and severe stricture was noted in the bulbar urethra. Allergies Allergy/AdvReac Type Severity Reaction Status Date / Time tramadol AdvReac Severe AGGRESSIVE, Verified 09/11/20 11:01 CONFUSED, SWINGING AT PEOPLE Home Medications Medication Instructions Recorded Confirmed Type 3-in-1 Commode #1 ea 02/24/20 02/24/20 Rx Wheeled Walker #1 ea 02/24/20 02/24/20 Rx cholecalciferol (vitamin D3) 50 50 mcg PO QAM 02/24/20 09/11/20 History mcg (2,000 unit) tablet Cbd Oit Otc 20 mg PO QAM 08/12/20 09/11/20 History Tylenol Arthritis 1,300 mg PO UD PRN 08/25/20 09/11/20 History Patient History Medical History Bilateral hip joint arthritis Hearing deficit Rt GUADARRAMA History of hypertension MEDS DISCONTINUED History of syncope x 1 episode approx 2 years ago r/t hypotension - bp meds discontinued after episode. Osteoarthritis Surgical History History of ankle surgery Left History of colonoscopy History of plastic surgery Rt ear History of tonsillectomy and adenoidectomy History of total hip arthroplasty LEFT 04/2020 Status post excision of lipoma Status post surgical removal of neoplasm of skin Rt ear Family History Brother Diabetes Other No family history of adverse response to anesthesia Social History Smoking Status: Former smoker Smoking End Date: QUIT 1983; Second Hand Exposure: Yes (SPOUSE SMOKED); Do You Dip or Chew Tobacco: No (QUIT AGE 62); Hx Alcohol Use: Yes Alcohol type: hard liquor Hx Substance Use: Yes Substance Use Type Other:: CBD OIL DAILY Preferred Language: Jordanian Communication Ability: Effective Oxidation Engineer Required: No Beliefs That Will Affect Care: None marital status: Current Living Situation: Spouse Other Information That Helps Us Care for You: No Feels Safe at Home: Yes Safety Concerns: Feels Safe At This Time Assistive Devices: Denture - Upper, Glasses and Hearing Aid - Bilateral Review of Systems Review of Systems: All systems reviewed & are unremarkable except as noted in HPI & below Physical Exam Physical Exam: General: Alert and oriented x 3 in no acute distress. Patient is well nourished and well kept. HEENT: Normocephalic Atraumatic. Inspection normal. Cranial Nerves 2-12 Grossly intact. Nares are clear. Neck is supple. Normal inspection of face. Normal inspection of neck. Neurologic: No deficits on inspection. Baseline for motor function and sensory. Psychologic: Normal affect. Respiratory: Nonlabored. No use of accessory muscles. No tachypnea or dyspnea. Cardiovascular: No tachycardia Skin: [place] and Dry. No rashes or visible lesions. Extremities: Moving without issues. No motor deficits on inspection Lymphatics: No edema Abdomen: Soft Non-distended. No acites. No rebound or guarding. Results & Data ([facility]) Vital Signs (Past 12 Hours) Vital Signs Temp Pulse Pulse Resp BP BP Pulse Ox 09/11/20 17:35 36.5 C 72 14 171/92 H 98 09/11/20 17:25 36.5 C 87 17 158/92 H 99 09/11/20 17:15 36.5 C 65 75 H 154/82 H 99 09/11/20 17:05 36.5 C 66 11 L 153/79 H 99 09/11/20 16:55 36.5 C 76 19 161/88 H 92 09/11/20 16:45 36.5 C 68 10 L 132/72 94 09/11/20 16:35 36.5 C 67 15 136/65 97 09/11/20 16:25 68 8 L 135/69 96 09/11/20 16:15 72 16 139/69 95 09/11/20 16:05 71 16 163/85 H 97 09/11/20 15:55 68 18 143/80 H 97 09/11/20 15:45 36.5 C 82 16 123/81 99 09/11/20 12:10 66 18 181/111 H 98 09/11/20 11:18 36.6 C 80 18 174/106 H 90 PG Care Time/CCT Total # of Minutes Spent Total Time Spent with Patient: Total time spent is greater than 50% in coordination of care (as documented) at patient's floor/unit and/or counseling patient: Coding Level of Care Code 71787 Initial Inpt Care Lvl 3 Diagnoses BPH (benign prostatic hyperplasia) N40.0 Urethral stricture N35.919 Hematuria, gross R31.0
--- NOTE | 2020-09-11 18:59 | Operative Report ---
PG Post Operative Report Pre & Post Diagnosis Operation Date: 09/11/20 15:55 Pre-Op Diagnosis: Urethral Stricture Post-Op Diagnosis: Urethral Stricture I identified the patient and participated in the time-out.: Yes Procedure Operation Date: 09/11/20 15:55 Actual Procedures p Cystoscopy, Urethral Dilation, and difficult catheter placement - Jerry Carcamo, Surgeon Jerry Carcamo, II, DO [place] Consultant None Estimated Blood Loss 5 Findings Consistent with Post-Op Diagnosis Severe stricture cannulated by wire and dilated. By passed and 20 Fr [place] tip catheter placed. Over 1 L drained. Specimens None Drains 20 Fr Q[place] tip catheter Anesthesia Type Spinal Complications none Disposition Accompanied Patient To Recovery: No Disposition: Recovery Room Indications Patient with obstruction due to stricture with multiple false passages and pinpoint stricture with hematuria from urethral bleed. Risks and benefits d iscussed at length. Description of Procedure Patient was consented and brought back to the operating room. Patient was already under spinal block anesthesia and remained in the supine position. Patient was prepped and draped in the regular sterile fashion. A time out was completed. A Flexible Cystoscope was placed into the urethra and advanced. The stricture and multiple false passages were investigated. The true lumen was discovered and a flexible wire placed. The urethral stricture was then dilated. The scope was advanced to bladder and the entire bladder was examined. The bladder was found to be significantly dilated. A wire was then placed and confirmed into the bladder. With the wire in place, the scope was slowly removed. A 20 Fr Q[place] tip catheter was placed over the wire. The bladder was emptied. The patient was cleaned and transferred to the pacu in stable condition having tolerated the procedure well with no complications. Patient was still under the effects of the spinal anesthesia. I was present and participated in all aspects of the procedure. The patient will be monitored in the PACU until transferred. Plan to maintain catheter for 10 days with plans for antibiotics for few days. Will need outpatient followup to discuss different options moving forward. I attest to the content of the Intraoperative Record and any orders documented therein. Any exceptions are noted below.
[2020-09-11] MEDS ORDERED: SODIUM CHLORIDE 0.9% 1000ML 1,000 ML IV SCH (20:00)
[2020-09-11] MEDS ORDERED: LACTATED RINGER'S 500 ML IV PRN (20:00)
[2020-09-11] MEDS ORDERED: NO NARCOTICS OR SEDATIVES SCH (20:00)
[2020-09-11] MEDS ORDERED: MAGNESIUM HYDROXIDE SUSP 30 ML UDC PO PRN (20:01)
[2020-09-11] MEDS ORDERED: ALUMINUM/MAGNESIUM SUSP 30 ML UDC PO PRN (20:01)
[2020-09-11] MEDS ORDERED: TAMSULOSIN HCL 0.4 MG CAP PO PRN (20:01)
[2020-09-11] MEDS ORDERED: METOCLOPRAMIDE HCL INJ 5 MG/ML 2 ML VIAL IV PRN (20:01)
[2020-09-11] MEDS ORDERED: bisacodyL 10 MG SUPP PR PRN (20:01)
[2020-09-11] MEDS ORDERED: TYLENOL ARTHRITIS PO PRN (20:01)
[2020-09-11] MEDS: SODIUM CHLORIDE 0.9% 1000ML 1,000 ML IV SCH (20:16)
[2020-09-11] MEDS ORDERED: SENNA 8.6 MG TAB PO SCH (21:00)
[2020-09-11] MEDS: ASPIRIN 81 MG ECTAB PO SCH (21:30)
[2020-09-11] MEDS: ceFAZolin 2000MG 2,000 MG/15 ML SYR IV SCH (21:30)
[2020-09-11] MEDS: KETOROLAC TROMETHAMINE 15 MG/ML VIAL IV SCH (21:30)
[2020-09-11] MEDS: ASCORBIC ACID 500 MG TAB PO SCH (21:30)
[2020-09-11] MEDS: DOCUSATE SODIUM 100 MG CAP PO SCH (21:30)
[2020-09-11] MEDS: ACETAMINOPHEN 500 MG TAB PO SCH (21:30)
[2020-09-11] MEDS: FERROUS GLUCONATE 324 MG TAB PO SCH (21:30)
[2020-09-11] MEDS ORDERED: TRANEXAMIC ACID / 0.7% NACL 1,000 MG/100 ML BAG IV SCH (21:49)
[2020-09-12] MEDS: KETOROLAC TROMETHAMINE 15 MG/ML VIAL IV SCH ×2 (02:55→08:21)
[2020-09-12] MEDS: ACETAMINOPHEN 500 MG TAB PO SCH (06:09)
[2020-09-12] MEDS: ceFAZolin 2000MG 2,000 MG/15 ML SYR IV SCH (06:09)
[2020-09-12] MEDS: SODIUM CHLORIDE 0.9% 1000ML 1,000 ML IV SCH (06:10)
[2020-09-12 07:34] LABS: Basophils # (auto) 0.01 K/uL (0-0.2); Basophils % (auto) 0.1 %; Eosinophils # (auto) 0.08 K/uL (0-0.5); Eosinophils % (auto) 1.1 %; Hematocrit (blood only) 33.7 % (42-52); Hemoglobin 10.8 g/dL (14.0-18.0); Immature Granulocytes # (auto) 0.02 K/uL (0.00-0.02); Immature Granulocytes % (auto) 0.3 %; Lymphocytes # (auto) 0.88 K/uL (1.2-3.4); Lymphocytes % (auto) 12.4 %; Mean Corpuscular Hemoglobin 26.7 pg (25-34); Mean Corpuscular Volume 83.4 fL (80-100); Monocytes % (auto) 11.3 %; Neutrophils # (auto) 5.29 K/uL (1.4-6.5); Neutrophils % (auto) 74.8 %; Platelet Count 173 K/uL (130-400); Red Blood Count 4.04 M/uL (4.7-6.1); White Blood Count 7.08 K/uL (4.8-10.8)
[2020-09-12 07:45] LABS: BUN Creatinine Ratio 13.8 (10-20); Calcium 7.9 mg/dl (8.5-10.1); Est GFR (African American) 83.1; Est GFR (Non-African American) 71.7; Potassium 3.8 mmol/L (3.5-5.1)
[2020-09-12] MEDS: DOCUSATE SODIUM 100 MG CAP PO SCH (08:20)
[2020-09-12] MEDS: FERROUS GLUCONATE 324 MG TAB PO SCH (08:20)
[2020-09-12] MEDS: ASPIRIN 81 MG ECTAB PO SCH (08:20)
[2020-09-12] MEDS: ASCORBIC ACID 500 MG TAB PO SCH (08:21)
--- NOTE | 2020-09-12 08:46 | Progress Notes ---
DATE: 09/12/2020 SUBJECTIVE: A 75-year-old gentleman postop day 1 from a right hip replacement. He had to be taken back to the operating room to put a catheter in his bladder. He is doing well this morning. Pain is controlled. Denies any chest pain or shortness of breath. Not feeling dizzy or lightheaded. He is pretty frustrated with the catheter issue. OBJECTIVE: VITAL SIGNS: Temperature 36.7. Vital signs stable. GENERAL: Shows a pleasant, middle-aged male. He is sitting up in bed, looks completely comfortable. LUNGS: Clear to auscultation. HEART: Regular rate and rhythm. ABDOMEN: Soft, nontender, nondistended. EXTREMITIES: Grossly neurovascularly intact except as follows: Examination of the right leg reveals the leg to be well aligned. Dressing is clean, dry and intact. Thigh is soft and supple. He can dorsiflex and plantarflex his foot appropriately. He is neurologically intact. LABORATORY DATA: Hemoglobin 10.8. Hematocrit 33.7. Electrolytes are stable. ASSESSMENT: A 75-year-old gentleman postoperative day 1 from right hip replacement, doing well. He has got a significant urethral stricture and he has got a Gallagher in place. We did talk to the urologist and they think it is best for him to leave that in for about 10 days and they will see him back in clinic and remove it. He is open to go home today. PLAN: 1. DVT prophylaxis including thigh-high TEDs, SCDs, and aspirin twice a day. 2. PT/OT. Weight bear as tolerated. Right total hip protocol. 3. Pain control, doing well with current pain regimen. He does not do well with tramadol. We will use Dilaudid in addition to Tylenol. 4. Urology. We are going to leave the catheter in. We are going to put on some prophylactic Keflex for the first 10 days or so while the catheter is in just to avoid any infection issues with his new hip replacement. 5. Disposition: Plan to discharge to home with some home health if he does okay in therapy today. Pain is controlled.
[2020-09-12] MEDS ORDERED: HYDROmorphone INJ 0.5 MG/0.5 ML SYR IV PRN (08:48)
[2020-09-12] MEDS ORDERED: ONDANSETRON INJ 2 MG/ML 2 ML VIAL IV PRN (08:48)
[2020-09-12] MEDS ORDERED: HYDROmorphone HCL 2 MG TAB PO PRN (08:48)
[2020-09-12] MEDS ORDERED: [UNRECOGNIZED DRUG - OTHER] PO SCH (09:00)
[2020-09-12] MEDS ORDERED: cephALEXin 500 MG CAP PO SCH (09:00)
[2020-09-12] MEDS ORDERED: CHOLECALCIFEROL 1,000 UNITS 25 MCG TAB PO SCH (09:00)
[2020-09-12] MEDS ORDERED: MULTIVITAMIN TAB PO SCH (09:00)
--- NOTE | 2020-09-17 07:50 | Discharge Summary ---
Date of Service September 17, 2020 Admission HPI Per Admitting Provider Documented in the H & P Admission Exam (Per Admitting) Constitutional Documented in the H & P Discharge Data Consultations 09/11/20 20:01 Consult Urology Routine 09/12/20 08:00 Consult Case Management - Discharge Planning Routine Procedures Performed Operation Date: 09/11/20 12:30 Actual Procedures p Right Total Hip Arthroplasty--Uncemented(Right) - Jamari Suazo MD Operation Date: 09/11/20 15:55 Actual Procedures p Cystoscopy, Urethral Dilation(Not Applicable) - Jerry Carcamo DO Hospital Course (1) Status post total hip replacement, right: This patient is a 75 year old male admitted on 09/11/20 and underwent total hip arthroplasty. He tolerated the procedure well and there were no complications. Transferred to the PACU post op and later to the orthopedic floor for further care. Urology was consulted for catheter placement. He did have a urethral stricture and was taken back to the operating room by Dr. Carcamo for catheter placement. He was given ancef for antibiotic prophylaxis. He was also given REBECA stockings, SCDs, and aspirin for DVT prophylaxis. Hemoglobin, hematocrit, and vital signs were monitored during his hospital stay and remained stable. Did not require any blood transfusions. There were no complications during his hospital stay. By post op day #1 the patient was tolerating a regular diet, pain was reasonably controlled with oral pain medicine, and he was participating in physical therapy. On post op day #1 the patient was discharged home and set up with home health care. He was given printed discharge instructions including prescriptions for extra strength tylenol, aspirin, and dilaudid. He was discharged with the catheter in and was given keflex. Continue physical therapy, weight bearing as tolerated. Continue hip precautions. Continue REBECA stockings. Follow up approximately 2 weeks post op or sooner if there are problems or concerns. Coding Level of Care Code None Diagnoses Status post total hip replacement, right Z96.641
== END 2020-09-12 11:16 | disposition home health service (06) ==
LOC: 3E 10:41 → ASU 10:41
DX: E78.00 Pure hypercholesterolemia, unspecified; H91.91 Unspecified hearing loss, right ear; Z87.891 Personal history of nicotine dependence; Z96.642 Presence of left artificial hip joint; Z88.6 Allergy status to analgesic agent; Z20.828 Contact with and (suspected) exposure to other viral communicable diseases; N40.0 Benign prostatic hyperplasia without lower urinary tract symptoms; N35.919 Unspecified urethral stricture, male, unspecified site; I10 Essential (primary) hypertension; M16.11 Unilateral primary osteoarthritis, right hip

== ENCOUNTER 2022-09-22 10:17 | Observation (INO) ==
--- NOTE | 2022-09-06 11:29 | Communication Note ---
Date of Service: September 06, 2022 - violent behavior after surgery. Per pt and his , 2 episodes of confusion, violent behavior post-op more than 24 hours after surgery lasting several hours- requiring police assistance; states was suspected to be due to tramadol however has since had tramadol without issues; Dr. Rebollar reviewed case and advised is not likely d/t anesthesia but potential combination of anesthesia, medications and advised obtaining further records from hospitalization. RN note 04/29/20 20:25: "...periods of forgetfulness/confusion..." 09/11/20 22:48: "...Duramorph protocols observed...mild confusion "Make sure you tell someone that last night in my hospital room, several guys came in through the window, went through my room and left by the door." 09/12/20 00:20 notes "some periods of memory loss...patient is resting quietly in bed..." Discussed above with Dr. Rebollar who advised reaction is likely due to Duramorph, combination of medications with previous hospitalizations. Pt and his made aware, they plan to further discuss with surgeon's office. Added to PMHx and allergies/adverse reactions. Surgeon's office made aware.
--- NOTE | 2022-09-08 12:55 | Anesthesiology Consultation ---
Date of Service September 08, 2022 Assessment & Plan (1) Encounter for pre-operative examination: Chart Review Chart Review: Acceptable Risk for Surgery (pending review of unconfirmed preop EKG DOS by anesthesiologist) and Patient NOT seen in Pre Admission Testing -Discussed case with Dr. Gregory- patient can proceed as scheduled -COVID screening: Per PAT nursing assessment on 09/05/22. No known COVID-19 positive contacts or current COVID-19 related symptoms. Travel screen negative. Patient vaccinated for Covid. At surgeon discretion if preop Covid testing being done. Pt seen be cardio 05/31/22= Patient seen for severe coronary artery calcification noted on chest CT scan. Also noted to have enlarged pulmonary artery and mild ascending thoracic aortic aneurysm. 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 He is quite physically active however given his limited ambulation due to hip replacements, extensive coronary calcification and uncertainty as to the extent of surgery will be necessary in the futuredobutamine stress echo ordered prior to chest wall surgery. (DSE negative) History Surgery Operation Date: 09/22/22 09:25 Proposed Procedures p Resection Right Chest Wall Mass Possible Rib Resection - Willis Grewal MD, FACS Height/Weight Height: 5 ft 11.5 in Weight: 95.254 kg Allergies Allergy/AdvReac Type Severity Reaction Status Date / Time morphine AdvReac Severe violent Verified 09/06/22 11:41 [From Duramorph (PF)] behavior, confusion, agitation tramadol AdvReac Severe AGGRESSIVE, Verified 09/05/22 09:05 CONFUSED, SWINGING AT PEOPLE Medications Home Medications Medication Instructions Recorded Confirmed Last Taken cholecalciferol (vitamin D3) 50 50 mcg PO QAM 02/24/20 09/05/22 09/10/20 09:00 mcg (2,000 unit) tablet Cbd Oit Otc 20 mg PO QAM 08/12/20 09/05/22 09/10/20 09:00 amoxicillin 500 mg tablet 2,000 mg PO ONCE #4 tabs 02/14/22 09/05/22 Unknown acetaminophen 650 mg 1,300 mg PO QID PRN pain 05/31/22 09/05/22 Unknown tablet,extended release (Tylenol Arthritis Pain) alendronate 70 mg tablet (Fosamax) 70 mg PO .weekly 05/31/22 09/05/22 Unknown prednisone 5 mg tablet 1 mg PO DAILY 05/31/22 09/05/22 Unknown amlodipine 2.5 mg tablet (Norvasc) 2.5 mg PO QAM 06/30/22 09/05/22 Unknown aspirin 81 mg tablet,delayed 81 mg PO QPM 09/05/22 09/05/22 Unknown release (Adult Low Dose Aspirin) hydroxychloroquine 200 mg tablet 200 mg PO QPM 09/05/22 09/05/22 Unknown (Plaquenil) lisinopril 10 mg tablet 10 mg PO QAM 09/05/22 09/05/22 Unknown prednisone 1 mg tablet 1 mg PO DAILY 09/05/22 09/05/22 Unknown rosuvastatin 5 mg tablet 5 mg PO QPM 09/05/22 09/05/22 Unknown Past Medical History Medical History Coronary artery calcification seen on CAT scan Dog bite Rt leg, Rt thumb wounds. 14 days ago. Abx x 7 days. Also received tetanus shot. Hearing deficit BL GUADARRAMA High cholesterol Per records History of anesthesia reaction Per pt and his : 2 episodes of confusion, violent behavior post-op more than 24 hours after surgery lasting several hours- requiring police assistance; unknown cause; states was suspected to be due to tramadol however has since had tramadol without issues; Dr. Rebollar reviewed case and advised is not likely d/t anesthesia but potential combination of anesthesia, medications. RN note from 08/2020 hospitalization notes episodes of confusion, hallucinations suspected to be d/t Duramorph; Jacqueline with [facility] office made aware History of syncope x 1 episode 4 years ago following exercise. Reports cardiac workup was negative. 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 Recently seen by [facility] Cardio for risk stratification after coronary artery calcifications noted on CT scan HTN (hypertension) Polymyalgia Past Family History Family History Brother Diabetes Father Cancer skin cancer at 95 Other No family history of adverse response to anesthesia Past Surgical History Surgical History History of ankle surgery Left History of colonoscopy (~2011) History of left hip replacement History of plastic surgery Rt ear History of right hip replacement History of tonsillectomy and adenoidectomy Status post excision of lipoma Status post surgical removal of neoplasm of skin Rt ear Social History Smoking Status: Former smoker Do You Dip or Chew Tobacco: No (quit at age 60) Smoking End Date: quit in his 30s Hx Alcohol Use: Yes Alcohol type: hard liquor alcohol intake frequency: 0-2 drinks per day Alcohol Intake Frequency Comment: 1 drink per night Hx Substance Use: No substance use type: does not use Substance Use Type Other:: CBD OIL DAILY Testing Laboratory Results 09/07/22= WBC: 6.3 H/H: 13.7/40.8 PLATELETS: 254 SODIUM: 138 POTASSIUM: 4.4 CHLORIDE: 109 CO2: 27 BUN: 17 CREATININE: 0.91 GLUCOSE: 109 Electrocardiogram Date: 09/07/22 Findings: + NSR @ (66 bpm) Unconfirmed Echocardiogram Date: 06/15/18 EF: 60% LV Function: normal Other Findings: + LVH (mild concentric) Valvular Disease: + no significant valvular disease Normal RV size and function. Normal RV/PA pressures. Stress Test Date: 06/30/22 Type: DSE Negative dobutamine stress echo for myocardial ischemia at 87% MPHR. Negative dobutamine stress EKG for myocardial ischemia at 87% MPHR Estimated LVEF is 65-70%. Mild concentric LVH. Grade [address] scan chest 04/01/22= No masses associated with the right posterior lateral eighth and ninth ribs or adjacent soft tissue marked by BB. Severe triple-vessel appearing coronary artery calcifications indicating severe CAD. Mild descending thoracic aortic aneurysm (3.1 x 3.2 cm). Mild ectasia proximal ascending thoracic aorta (4.0 cm diameter at the level of the right pulmonary artery). Incompletely seen left renal rounded medial central smooth margin low- attenuation area most likely represents peripelvic cyst. Moderate centrilobular emphysema. Mild anterior wedge compression fracture approximate T1 and T7 marcus tebral bodies. Clinical correlation recommended. Recommend correlation with any prior chest imaging to determine acute versus chronic vertebral compression body fractures. Left subscapular benign-appearing lipoma approximately 8.8 x 3.6 x 7.9 cm.
[~2022-09-22 10:17] MED LIST changes: -ACETAMINOPHEN 500 MG TAB PO SCH; -BUPIVACAINE 0.5 % 5 MG/1 ML PF 10ML VIAL ONE; -FAMOTIDINE 20 MG TAB PO SCH; -GABAPENTIN 300 MG CAP PO SCH; +LR 15ML/HR IV SCH; -LR 500ML BOLUS, THEN 15ML/HR IV SCH; -LR 60ML/HR IV SCH; -METOCLOPRAMIDE HCL 10 MG TABLET PO SCH; -MIDAZOLAM HCL 1 MG/ML 2ML VIAL ONE; -TRANEXAMIC ACID 1,000 MG **IV Intra-op IV SCH; -ceFAZolin 2000MG 2,000 MG/15 ML SYR IV SCH; -fentaNYL citrate 100 MCG/2 ML VIAL ONE
[2022-09-22] MEDS ORDERED: MIDAZOLAM HCL 1 MG/ML 2ML VIAL ONE (10:42)
[2022-09-22] MEDS ORDERED: fentaNYL citrate 100 MCG/2 ML VIAL ONE ×2 (10:42→12:15)
[2022-09-22] MEDS ORDERED: BUPIVACAINE 0.5 % 5 MG/1 ML MPF 30ML VIAL ONE (10:45)
--- NOTE | 2022-09-22 10:50 | History & Physical Report ---
Date of Service September 22, 2022 Assessment & Plan (1) Chest wall mass: Plan: We will proceed with resection of the mass possible rib resection and this was explained with the patient including bleeding infection possibility of knowledge pain may not be alleviated and also the unlikely possibility that we do not define the point of interest All question answered we will proceed accordingly The patient had a violent reaction after the hip surgery probably attributed to tramadol or morphine when he was discharged from the hospital once he got home became very violent at needed to call the police Plan Schedule for resection of right chest wall mass possible rib resection History of Present Illness Chief Complaint: Pain right chest wall localized near rib Primary Care Provider: Meghan Loza, DO This 77-year-old gentleman I seen approximately 5 months or so ago with pain localized in the right rib cage that started in the back and came towards the front had a CAT scan done at [place] which facility was identify any pathology as far as any fractured area clinically we were able to localize the area after the patient pointed to it that was underneath the rib approximately 6 rib area I reviewed the CAT scan here with our radiologist and they felt there may be a neuroma underneath her rib causing the discomfort since that time the patient has had a cardiac evaluation and they cleared him for surgery and is here today for surgery since last seen patient's pain is pretty much in the same area although he says it moves around from the back to the frontal area There is no other changes noted Allergies Allergy/AdvReac Type Severity Reaction Status Date / Time morphine AdvReac Severe violent Verified 09/22/22 10:34 [From Duramorph (PF)] behavior, confusion, agitation tramadol AdvReac Severe AGGRESSIVE, Verified 09/22/22 10:34 CONFUSED, SWINGING AT PEOPLE Home Medications Medication Instructions Recorded Confirmed Type cholecalciferol (vitamin D3) 50 50 mcg PO QAM 02/24/20 09/22/22 History mcg (2,000 unit) tablet Cbd Oit Otc 20 mg PO QAM 08/12/20 09/22/22 History amoxicillin 500 mg tablet 2,000 mg PO ONCE #4 tabs 02/14/22 09/22/22 Rx acetaminophen 650 mg 1,300 mg PO QID PRN pain 05/31/22 09/22/22 History tablet,extended release (Tylenol Arthritis Pain) alendronate 70 mg tablet (Fosamax) 70 mg PO .weekly 05/31/22 09/22/22 History amlodipine 2.5 mg tablet (Norvasc) 2.5 mg PO QAM 06/30/22 09/22/22 History aspirin 81 mg tablet,delayed 81 mg PO QPM 09/05/22 09/22/22 History release (Adult Low Dose Aspirin) hydroxychloroquine 200 mg tablet 200 mg PO QPM 09/05/22 09/22/22 History (Plaquenil) lisinopril 10 mg tablet 10 mg PO QAM 09/05/22 09/05/22 History rosuvastatin 5 mg tablet 5 mg PO QPM 09/05/22 09/05/22 History lisinopril 10 mg tablet 10 mg PO DAILY 09/22/22 09/22/22 History oxycodone 5 mg tablet 5 - 10 mg PO Q4H pain, initial 09/22/22 Rx therapy #15 tabs Past Med/Surg History Medical History Coronary artery calcification seen on CAT scan Dog bite Rt leg, Rt thumb wounds. 14 days ago. Abx x 7 days. Also received tetanus shot. Hearing deficit BL GUADARRAMA High cholesterol Per records History of anesthesia reaction Per pt and his : 2 episodes of confusion, violent behavior post-op more than 24 hours after surgery lasting several hours- requiring police assistance; unknown cause; states was suspected to be due to tramadol however has since had tramadol without issues; Dr. Rebollar reviewed case and advised is not likely d/t anesthesia but potential combination of anesthesia, medications. RN note from 08/2020 hospitalization notes episodes of confusion, hallucinations suspected to be d/t Duramorph; Jacqueline with surgeon's office made aware History of syncope x 1 episode 4 years ago following exercise. Reports cardiac workup was negative. 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 Recently seen by [facility] Cardio for risk stratification after coronary artery calcifications noted on CT scan HTN (hypertension) Polymyalgia Surgical History History of ankle surgery Left History of colonoscopy (~2011) History of left hip replacement History of plastic surgery Rt ear History of right hip replacement History of tonsillectomy and adenoidectomy Status post excision of lipoma Status post surgical removal of neoplasm of skin Rt ear Family History Brother Diabetes Father Cancer skin cancer at 95 Other No family history of adverse response to anesthesia Social History Smoking Status: Former smoker Tobacco Type: Smokeless Tobacco (Dip or Chew) packs per day: 1; Smoking End Date: quit in his 30s; Second Hand Exposure: Yes (SPOUSE SMOKED); Do You Dip or Chew Tobacco: No (quit at age 60); Tobacco Cessation Education Requested by Patient: No Hx Alcohol Use: Yes Alcohol type: hard liquor Alcohol Intake Frequency: 4 or More x per/Week Hx Substance Use: Yes Substance Use Type Other:: CBD OIL DAILY Preferred Language: Italian Communication Ability: Effective Linoleum Tile Layer Required: No Beliefs That Will Affect Care: None marital status: Current Living Situation: Spouse current occupational status: retired How many Children do You have: 1 Feels Safe at Home: Yes Safety Concerns: Feels Safe At This Time Diet Comment: Low sodium during the past year weight has: increased > 10 lbs Assistive Devices: Walker Assistive Devices Comment: lower partial Physical Exam Physical Exam: Alert coherent bit hard of hearing in no distress Sclera is nonicteric No cervical lymphadenopathy Lungs no audible wheezing patient was placed in left lateral position and pointed exactly where the pain was today and on examination consistent with a soft tissue mass at the level this sixth or seventh rib we were able then to fanta it with a marking pen after the patient felt the area and I documented it with a keweenaw and ask Cardiac normal sinus rhythm on monitor Abdomen benign PG Care Time/CCT Total # of Minutes Spent Total Time Spent with Patient: Total time spent is greater than 50% in coordination of care (as documented) at patient's floor/unit and/or counseling patient: Coding Level of Care Code 21954 Initial Inpt Care Lvl 3 Diagnoses Chest wall mass R22.2
[2022-09-22] MEDS ORDERED: ePHEDrine sulfate 50 MG/ML AMP IV PRN (10:51)
[2022-09-22] MEDS ORDERED: NALOXONE HCL 0.4 MG/1 ML VIAL/CARP IV PRN (10:51)
[2022-09-22] MEDS ORDERED: PROMETHAZINE HCL 12.5 MG in SODIUM CHLORIDE 0.9% 50 ML IV PRN (10:51)
[2022-09-22] MEDS ORDERED: ATROPINE SULFATE 0.1 MG/ML 10ML SYR IV PRN (10:51)
[2022-09-22] MEDS ORDERED: ONDANSETRON INJ 2 MG/ML 2 ML VIAL IV PRN ×2 (10:51→14:17)
[2022-09-22] MEDS ORDERED: LABETALOL HCL IV 5 MG/ML 20ML IV PRN (10:51)
[2022-09-22] MEDS ORDERED: FLUMAZENIL 0.1 MG/1 ML 10 ML VIAL IV PRN (10:51)
[2022-09-22] MEDS ORDERED: fentaNYL citrate 100 MCG/2 ML VIAL IV PRN (10:51)
[2022-09-22] MEDS ORDERED: DEXAMETHASONE SOD INJ 4 MG/ML VIAL ONE (12:12)
[2022-09-22] MEDS ORDERED: PROPOFOL IV EMULSION 10 MG/ML 20 ML VIAL IV ONE (12:12)
[2022-09-22] MEDS ORDERED: ONDANSETRON INJ 2 MG/ML 2 ML VIAL ONE (12:12)
[2022-09-22] MEDS ORDERED: GLYCOPYRROLATE 0.2 MG/ML VIAL ONE (12:22)
[2022-09-22] MEDS ORDERED: LIDOCAINE 2% MPF LOCAL 5 ML VIAL INFIL ONE (12:24)
[2022-09-22] MEDS ORDERED: ceFAZolin 2000MG 2,000 MG/15 ML SYR IV ONE (12:27)
--- NOTE | 2022-09-22 12:38 | Post Operative Brief Note ---
PG Immediate Post Op with CF Date of Surgery September 22, 2022 Pre & Post Diagnosis Operation Date: 09/22/22 11:45 Pre-Op Diagnosis: Right chest Wall Mass Post-Op Diagnosis: Right chest Wall Mass I identified the patient and participated in the time-out.: Yes Procedure Operation Date: 09/22/22 11:45 Actual Procedures p Right Chest Wall Mass Resection with seventh Rib Resection(Right) - Willis Grewal MD, FACS Surgeon Willis Grewal MD, FACS Showroom Sales Consultant b juan shelley Estimated Blood Loss 50 Findings Consistent with Post-Op Diagnosis Specimens Specimen Description: A. Right seventh rib resection
--- NOTE | 2022-09-22 13:01 | Operative Report ---
PG Post Operative Report Pre & Post Diagnosis Operation Date: 09/22/22 11:45 Pre-Op Diagnosis: Right chest Wall Mass Post-Op Diagnosis: Right chest Wall Mass I identified the patient and participated in the time-out.: Yes Procedure Operation Date: 09/22/22 11:45 Actual Procedures p Right Chest Wall Mass Resection with seventh Rib Resection(Right) - Willis Grewal MD, FACS The patient was brought into the operating room theater general endotracheal anesthesia and the patient was placed in the left lateral position on a beanbag make sure with padded the appropriate areas the right arm was placed over 2 pillows overlap in the left arm on an armboard right chest area was prepped Betadine solution properly draped a timeout was had patient identified systemic antibiotics on board made an incision approximately 8 cm long right over the area that we had marked preoperatively with the help of the patient were the lesion had been seen on CAT scan deepened to subcutaneous tissue onto the serratus anterior is muscle deep which was divided laterally beginning almost the anterior axillary line Onto the rib and continued dissection onto the lip overlying the area that we could palpate at this time is a very definitive mass that it was strictly adherent to the rib we enlarged the incision a bit more ending up at about 10 cm incision once we had identified the areas of interest we circumferentially went around the rib proximally avoiding the entry the pleura and divided with a independent distributor we continued dissection trying to save stay away from the pleura and apparently we got in a few areas then as we dissected more medially around the lesion that was palpated and strict adherence of the rib there was a prominent intercostal nerve distal to that we divided and ligated with 2-0 silk once we had freed this tissue up we then resected the rib distal into the lesion with almost at the costal chondral margin. Some bleeding and intercostal artery superiorly was controlled with a running 2-0 silk suture the specimen would be taken to pathology prior to that we closed the thoracotomy incision using #2 Vicryl interrupted suture intercostally placed then we used 2-0 Vicryl to reapproximate the serratus muscle prior to completing that closure we had placed a 14 red rubber catheter inside thoracic cavity and prior to closing that we placed the catheter on suction and closed the subcutaneous tissue with a running 2-0 Vicryl and dayna for skin edges I took the specimen to pathology where the lesion of interest was evident and it was found and seem to be well delineated and felt no frozen section could be needed at this time The procedure was tolerated well by the patient estimated blood loss 50 cc Ronaldo shelley was present throughout the procedure and helped the retraction exposure and wound closure Surgeon Willis Grewal MD, FACS Customer Retention Representative luann shelley Estimated Blood Loss 50 Findings Consistent with Post-Op Diagnosis Well delineated lesion underneath the seventh rib Specimens En bloc resection of a segment of the seventh rib approximately 6 cm in length with the undersurface of well delineated lesion Complications None Description of Procedure merda I attest to the content of the Intraoperative Record and any orders documented therein. Any exceptions are noted below.
--- NOTE | 2022-09-22 13:33 | XRay Report ---
XR chest 1V portable HISTORY: post op rib resection COMPARISON: Chest 04/06/2020. FINDINGS: There is partial resection of the right lateral ninth rib. Small amount of soft tissue gas at this location and overlying skin dayna consistent with postoperative change. No pneumothorax. No pleural effusions. There are low lung volumes with a few bibasilar linear densities consistent with subsegmental atelectasis. The heart is mildly enlarged. No evidence for pulmonary edema. IMPRESSION: Status post partial resection of the right ninth rib. No pneumothorax. ACT 112: Negative or not required by law. Electronically signed by: Jacek Lemus M.D. 09/22/2022 1:32 PM
--- NOTE | 2022-09-22 13:40 | Anesthesiology Progress Note ---
Date of Service September 22, 2022 Anesthesia Post Procedure Vital Signs Vital Signs: Temp Pulse Pulse Resp BP Pulse Ox O2 Del Method 09/22/22 13:10 84 18 150/99 H 96 Oxymask 09/22/22 13:30 72 18 157/91 H 95 Nasal Cannula 09/22/22 13:20 79 14 139/97 91 Room Air 09/22/22 13:00 94 H 21 157/92 H 95 Oxymask 09/22/22 12:58 36.0 C L 94 H 20 157/92 H 94 Oxymask 09/22/22 10:40 36.7 C 70 18 174/108 H 100 Room Air O2 Flow Rate 09/22/22 13:10 3 09/22/22 13:30 2 09/22/22 13:20 09/22/22 13:00 6 09/22/22 12:58 6 09/22/22 10:40 Transfer of Care Handoff Completed per policy Notes Mental Status: alert / awake / arousable Patient Amnestic to Procedure: Yes Nausea / Vomiting: adequately controlled Pain: adequately controlled Airway Patency, RR, SpO2: stable & adequate BP & HR: stable & adequate Hydration State: stable & adequate Anesthetic Complications: no major complications apparent
[2022-09-22] MEDS ORDERED: oxyCODONE HCL IR 5 MG TAB (IMMEDIATE RELEASE) PO PRN ×2 (14:17)
[2022-09-22] MEDS: LACTATED RINGER'S 1,000 ML IV SCH (18:34)
[2022-09-22] MEDS: ACETAMINOPHEN 500 MG TAB PO PRN (18:40)
[2022-09-22] MEDS ORDERED: ASPIRIN 81 MG ECTAB PO SCH (21:00)
[2022-09-22] MEDS ORDERED: COUGH DROP (SUGAR FREE) LOZ 24 LOZ/1 BOX BUCCAL ONE (21:13)
[2022-09-22] MEDS ORDERED: Nursing to Pharmacy Communication SCH (21:15)
[2022-09-22] MEDS ORDERED: COUGH DROP (SUGAR FREE) LOZ 24 LOZ/1 BOX BUCCAL PRN (21:19)
[2022-09-23] MEDS: ACETAMINOPHEN 500 MG TAB PO PRN (03:23)
[2022-09-23] MEDS ORDERED: amLODIPine BESYLATE 5 MG TAB PO SCH (09:00)
[2022-09-23] MEDS ORDERED: lisinopril 10 MG TAB PO SCH (09:00)
--- NOTE | 2022-09-23 10:15 | Surgery Progress Note ---
Date of Service September 23, 2022 Assessment & Plan (1) Chest wall mass: Plan: 09/23/22 #1 postoperative day status post resection seventh rib with underlying lesion Operative procedure to been explained to patient including the findings of a lesion underneath the rib and pathology report will take a few more days until we find have the results The patient certainly can be discharged today he is anxious to go home he lives 2 hours or so away therefore I gave him some staple remover and some Steri- Strips his and nurse remove the dayna and apply Steri-Strips that should be done in approximately 7 to 10 days or so Due to the distance possibility inclement weather coming around the patient does not need a follow-up appointment unless new issues arise we will be in touch with him once the path report is available All question answered Of note he can tell at this time due to the pain in the incision but the pain that he was experiencing before surgery seem to have subsided We will proceed with resection of the mass possible rib resection and this was explained with the patient including bleeding infection possibility of knowledge pain may not be alleviated and also the unlikely possibility that we do not define the point of interest All question answered we will proceed accordingly The patient had a violent reaction after the hip surgery probably attributed to tramadol or morphine when he was discharged from the hospital once he got home became very violent at needed to call the police Plan Schedule for resection of right chest wall mass possible rib resection Admission and Anticipated Discharge Date Admission Date: September 22, 2022 Subjective Patient overall feels well and up around without any issues expected discomfort in the chest area has been taken Tylenol for pain did not have any hallucinations as he had had experienced to be 4 when he had his total hip Physical Exam Physical Exam: Up and around without any discomfort Dressing is dry removed dayna intact no ecchymosis on the incision Results & Data ([facility]) Vital Signs (Past 12 Hours) Vital Signs Temp Pulse Pulse Resp BP BP Pulse Ox 09/23/22 08:00 36.9 C 61 16 142/74 H 97 09/23/22 03:00 36.9 C 70 16 127/70 92 09/23/22 00:16 36.9 C 73 16 115/69 95 09/22/22 23:00 37.1 C 73 18 99/49 L 93 O2 Del Method 09/23/22 08:00 Room Air 09/23/22 03:00 Room Air 09/23/22 00:16 Room Air 09/22/22 23:00 Room Air PG Care Time/CCT Total # of Minutes Spent Total Time Spent with Patient: Total time spent is greater than 50% in coordination of care (as documented) at patient's floor/unit and/or counseling patient: Coding Level of Care Code None Diagnoses Chest wall mass R22.2
[2022-09-23] MEDS: LACTATED RINGER'S 1,000 ML IV SCH (11:23)
--- NOTE | 2022-09-27 09:34 | Discharge Summary ---
Date of Service September 27, 2022 Admission HPI Per Admitting Provider This 77-year-old gentleman I seen approximately 5 months or so ago with pain localized in the right rib cage that started in the back and came towards the front had a CAT scan done at [place] which facility was identify any pathology as far as any fractured area clinically we were able to localize the area after the patient pointed to it that was underneath the rib approximately 6 rib area I reviewed the CAT scan here with our radiologist and they felt there may be a neuroma underneath her rib causing the discomfort since that time the patient has had a cardiac evaluation and they cleared him for surgery and is here today for surgery since last seen patient's pain is pretty much in the same area although he says it moves around from the back to the frontal area There is no other changes noted Principal Diagnosis Right rib mass Discharge Exam Constitutional WD/WN, vitals as above Chest (Breasts) Additional Comments: Incision clean, dry Discharge Data Allergies Allergy/AdvReac Type Severity Reaction Status Date / Time morphine AdvReac Severe violent Verified 09/22/22 10:34 [From Duramorph (PF)] behavior, confusion, agitation tramadol AdvReac Severe AGGRESSIVE, Verified 09/22/22 10:34 CONFUSED, SWINGING AT PEOPLE Procedures Performed Operation Date: 09/22/22 11:45 Actual Procedures p Right Chest Wall Mass Resection with seventh Rib Resection(Right) - Willis Grewal MD, FACS Hospital Course (1) Chest wall mass: 77-year-old male with painful right chest wall mass was taken the operating room for resection of mass along with portion of seventh rib. He has a history of adverse reaction to analgesics. He was admitted the surgical floor for overnight observation. Postoperative chest x-ray was stable. In the morning he was tolerating Tylenol for pain. He was stable for discharge home. Final pathology is pending. Total Time Total Time Spent Total Time Spent (In Minutes): 15 Discharge Plan Discharge Items Patient Disposition: Home - Self-Care Reason For Visit: Right chest Wall Mass Discharge Diagnosis: Removal of mass Activity: As commented below Lifting: No more than 10 pounds Bathing Comment: Can shower today Sexual Activity: When tolerated Non-emergency contact: Primary Care Provider and Surgeon Call non-emergency contact if: you have any medication questions, your pain is not controlled, you have a fever, your temperature is above 101.5 and your wound has increased redness Follow-up/Referrals: Willis Grewal MD, FACS [Surgeon] - 09/30/22 10:15 am (In 1 week as scheduled or call if you have any questions) Meghan Loza, [Primary Care Provider] - Diet: Regular Addtl Attending Provider Instructions: Pending Studies at Discharge: No Stand-Alone Forms: My [facility] Medications and DC Order Prescriptions: New oxycodone 5 mg tablet 5 - 10 mg PO Q4H MDD 6 tabs Qty: 15 0RF Continued amoxicillin 500 mg tablet 2,000 mg PO ONCE Qty: 4 3RF Rx Instructions: 4 tabs 1 hour prior to procedure amlodipine [Norvasc] 2.5 mg tablet 2.5 mg PO QAM cholecalciferol (vitamin D3) 50 mcg (2,000 unit) tablet 50 mcg PO QAM acetaminophen [Tylenol Arthritis Pain] 650 mg tablet extended release 1,300 mg PO QID PRN (Reason: pain) alendronate [Fosamax] 70 mg tablet 70 mg PO .weekly Cbd Oit Otc 20 mg PO QAM hydroxychloroquine [Plaquenil] 200 mg Tablet 200 mg PO QPM aspirin [Adult Low Dose Aspirin] 81 mg tablet,delayed release (DR/EC) 81 mg PO QPM lisinopril 10 mg tablet 10 mg PO QAM rosuvastatin 5 mg tablet 5 mg PO QPM lisinopril 10 mg tablet 10 mg PO DAILY Discharge Orders: Discharge Order (Routine); Ordered 09/23/22 Ordered By: Willis Hays/Other Patient Handouts: Risk Factors for Heart Disease, Identifying Your Heart Risks Admission Data Admit Date/Time: 09/22/22 13:07 Attending Provider: Willis Grewal Admit Provider: Willis Grewal Primary Care Provider: Meghan Loza Other Interventions: Discharge Summary Assessment (RN) Last Done: 09/23/22 11:23 Coding Level of Care Code D/C DAY MANAGEMENT <30 MINS Diagnoses Chest wall mass R22.2
== END 2022-09-23 12:07 | disposition home or self-care (01) ==
LOC: ASU 10:17 → 3W 10:17
DX: M72.4 Pseudosarcomatous fibromatosis; Z88.5 Allergy status to narcotic agent; R22.2 Localized swelling, mass and lump, trunk; Z79.82 Long term (current) use of aspirin; Z87.891 Personal history of nicotine dependence; Z79.899 Other long term (current) drug therapy